=== PATIENT | female | born 1960 | race Caucasian/White ===

== ENCOUNTER 2018-11-13 08:20 | Inpatient (IN) | payer OTHER ==
[~2018-11-13] VITALS: Ht 165.1 cm; Wt 97.8 kg
[2018-11-13] MEDS ORDERED: Gemfibrozil600 MG PO (09:25)
[2018-11-13] MEDS ORDERED: THYR60 PO (09:25)
[2018-11-13] MEDS ORDERED: OXYC5 PO (09:25)
[2018-11-13] MEDS ORDERED: BACL20 PO (09:25)
[2018-11-13] MEDS ORDERED: ATEN25 PO (09:25)
[2018-11-13] MEDS ORDERED: IBUP800 PO (09:26)
[2018-11-13 09:43] LABS: BASOPHILS ABSOLUTE AUTO 0.04 K/mm3 (0.00-0.23); BASOPHILS PERCENT AUTO 0 % (0-2); EOSINOPHILS ABSOLUTE AUTO 0.02 K/mm3 (0.00-0.68); EOSINOPHILS PERCENT AUTO 0 % (0-6); Hematocrit 41.8 % (33.0-51.0); Hemoglobin 13.3 g/dL (11.5-16.0); IMMATURE GRAN ABSOLUTE AUTO 0.03 K/mm3 (0.00-0.10); IMMATURE GRAN PERCENT AUTO 0 % (0-1); LYMPHOCYTES ABSOLUTE AUTO 0.68 K/mm3 (0.84-5.20); LYMPHOCYTES PERCENT AUTO 6 % (21-46); MONOCYTES ABSOLUTE AUTO 0.67 K/mm3 (0.16-1.47); MONOCYTES PERCENT AUTO 5 % (4-13); Mean Corpuscular HGB Conc 31.8 g/dL (31.5-36.5); Mean Corpuscular Volume 94 fL (80-100); Mean Platelet Volume 9.4 fL (9.1-12.4); NEUTROPHILS ABSOLUTE AUTO 11.01 K/mm3 (1.96-9.15); NEUTROPHILS PERCENT AUTO 88 % (41-73); Platelet Count 529 K/mm3 (150-400); RDW Coefficient Variation 13.4 % (11.7-14.2); RDW Standard Deviation 46.2 fL (35.1-46.3); Red Blood Cell Count 4.43 M/mm3 (3.80-5.20); White Blood Cell Count 12.45 K/mm3 (4.00-11.30)
[2018-11-13 10:06] LABS: Alanine Aminotransfer (ALT/SGP 17 U/L (12-78); Albumin/Globulin Ratio 0.9 (0.8-1.8); Alk Phos 86 U/L (50-136); Anion Gap 7 mmol/L (6-16); Aspartate Aminotrans (AST/SGOT 16 U/L (12-37); Bilirubin, Total 0.4 mg/dL (0.1-1.0); Blood Urea Nitrogen 19 mg/dL (8-24); Bun/Creatinine Ratio 20.2 (12.0-20.0); CO2, Blood 26 mmol/L (21-32); Chloride, Blood 104 mmol/L (98-108); Creatinine, Blood 0.94 mg/dL (0.40-1.00); Globulin, Blood 4.7 g/dL (2.2-4.0); Glomerular Filtration Rate >60 (60-); Glucose, Blood 146 mg/dL (70-99); Potassium, Blood 4.7 mmol/L (3.5-5.5); Sodium, Blood 137 mmol/L (136-145); Total Protein, Blood 8.7 g/dL (6.4-8.2); Troponin I <0.015 ng/mL (0.000-0.040)
[2018-11-13 11:29] LABS: International Normalized Ratio 0.97; Prothrombin Time Results 10.3 Sec (9.7-11.5)
[2018-11-13] MEDS ORDERED: Hydroxychloroq200 MG PO (11:54)
[2018-11-13] MEDS ORDERED: Ventolin/Prove6.7 GM PO (11:55)
[2018-11-13 15:00] LABS: PCO2 Arterial 42.8 mmHg (35-45); pH Blood Arterial 7.34 (7.35-7.45)
--- NOTE | 2018-11-13 17:09 | NUR ---
PT TO ROOM FROM ER AT 1535. REPORT FROM JAIME RICO. PT ADMITTED c PERFORATED GASTRIC ULCER. C/O EPIGASTRIC PAIN X 10 DAYS. INCREASED PAIN LAST NOC c NAUSEA. LAST BM YESTERDAY, LAST MEAL YESTERDAY AT 1900. PT A&OX 3. ANSWERS QUESTIONS APPROPRIATELY. STAND BY ASSIST TO BED. STATES PAIN 6/10. ABD ROUND, TENDER IN UPPER QUADRENTS, BT X 4. PLACED ON O2 IN ER POST NARCOTIC ADMINSTRATION. LUNGS CLEAR, SHALLOW RESP. PT C/O INCREASED PAIN c DEEP INSPIRATION. NSR ON MONITOR. VSBen BEDOYA. OR NURSE TO ROOM FOR PROCEDURE TODAY. CALL LIGHT IN REACH. UPDATED ON PLAN OF CARE. WILL CONTINUE TO MONITOR.
--- NOTE | 2018-11-13 18:33 | NUR ---
DR CORNEJO AT BEDSIDE DISCUSSING CARE PLAN c PT AND DAUGHTER. PLAN TO TAKE PT TO OR. REPORT TO ONCOMING NURSE.
--- NOTE | 2018-11-13 23:39 | NUR ---
ASSUMED CARE PT ARRIVESE TO ICU VIA STRETCHER FROM OR AT 2339. PT FOLLOWS COMMANDS, EQUAL INTEGRITY ASSESSOR, WIGGLES TOES, ETC... BUT HAS MUFFLED SPEECH. APPEARS TO BE IN PAIN AND ANXIOUS, REACHING FOR NG TUBE AND NON-REBREATHER MASK - DESPITE BEING TOLD NOT TO. PT NOT TOLERATING NON-REBREATHER SAT'ING MID - HIGH 80'S - SWITCHED TO 4L NC BECAUSE WE THOUGHT IT HAD SOMETHING TO DO WITH FEELING ANXIOUS FROM THE FACE MASK. PT TOLERATED THAT BETTER TILL ABOUT 2240, IN WHICH SHE DE-SAT'ED BACK TO MID TO HIGH 80'S. SHE IS NOW SAT'ING 91 ON 6L VIA OXYMIZER. WOUND VAC, AND BRYAN DRAIN SITES ARE CDI AND WNL. THE BRYAN DRAIN IS ABOUT 2/3 FULL OF SANGUINOUS DRAINAGE. PT HAS STRONG PULSES IN ALL EXTREMETIES. BP STABLE, HR IS TACHY BUT SINUS AND TRENDING DOWNWARD. PT HAS A NG TUBE THAT IS HOOKED UP TO LIS, NO APPARENT DRAINAGE ASIDE AIR. WILKES CATHETER IS RAINING CLEAR, YELLOW URINE TO GRAVITY. BED IS LOW AND LOCKED. CALL LIGHT WITHIN REACH.
--- NOTE | 2018-11-13 23:40 | NUR ---
END OF POST-ANESTHESIA RECOVERY. PT IS MORE ALERT, UNABLE TO SPEAK FULL SENTENCES - BUT CAN STATE NEEDS WITH ONE WORD, AND FOLLOWS ALL COMMANDS. PT IS VENTILATING MORE ADEQUATELY, ABLE TO TAKE DEEPER BREATHS AND IS REQUIRING LESS OXYGEN.
[2018-11-14 03:17] LABS: BASOPHILS ABSOLUTE AUTO 0.01 K/mm3 (0.00-0.23); BASOPHILS PERCENT AUTO 0 % (0-2); EOSINOPHILS PERCENT AUTO 0 % (0-6); Hematocrit 34.7 % (33.0-51.0); IMMATURE GRAN ABSOLUTE AUTO 0.03 K/mm3 (0.00-0.10); IMMATURE GRAN PERCENT AUTO 0 % (0-1); LYMPHOCYTES ABSOLUTE AUTO 0.59 K/mm3 (0.84-5.20); LYMPHOCYTES PERCENT AUTO 5 % (21-46); MONOCYTES ABSOLUTE AUTO 0.44 K/mm3 (0.16-1.47); MONOCYTES PERCENT AUTO 4 % (4-13); Mean Corpuscular HGB 30.6 pg (26.0-34.0); Mean Corpuscular HGB Conc 31.7 g/dL (31.5-36.5); Mean Platelet Volume 8.9 fL (9.1-12.4); NEUTROPHILS ABSOLUTE AUTO 10.09 K/mm3 (1.96-9.15); NEUTROPHILS PERCENT AUTO 90 % (41-73); Platelet Count 391 K/mm3 (150-400); RDW Coefficient Variation 13.6 % (11.7-14.2); RDW Standard Deviation 48.7 fL (35.1-46.3); Red Blood Cell Count 3.59 M/mm3 (3.80-5.20); White Blood Cell Count 11.16 K/mm3 (4.00-11.30)
[2018-11-14 03:21] LABS: Mean Corpuscular Volume 97 fL (80-100)
[2018-11-14 03:34] LABS: Alanine Aminotransfer (ALT/SGP 590 U/L (12-78); Albumin, Blood 2.8 g/dL (3.4-5.0); Albumin/Globulin Ratio 0.7 (0.8-1.8); Alk Phos 67 U/L (50-136); Anion Gap 6 mmol/L (6-16); Aspartate Aminotrans (AST/SGOT 978 U/L (12-37); Bilirubin, Total 0.3 mg/dL (0.1-1.0); Blood Urea Nitrogen 14 mg/dL (8-24); Bun/Creatinine Ratio 21.1 (12.0-20.0); CO2, Blood 24 mmol/L (21-32); Calcium, Blood 7.7 mg/dL (8.5-10.1); Chloride, Blood 107 mmol/L (98-108); Creatinine, Blood 0.66 mg/dL (0.40-1.00); Glomerular Filtration Rate >60 (60-); Glucose, Blood 123 mg/dL (70-99); Magnesium, Blood 1.8 mg/dL (1.6-2.4); Phosphorus, Blood 3.1 mg/dL (2.5-4.9); Sodium, Blood 137 mmol/L (136-145); Total Protein, Blood 6.8 g/dL (6.4-8.2)
--- NOTE | 2018-11-14 06:22 | NUR ---
SHIFT SUMMARY PT IS CURRENTLY LYING IN BED, S/P EX LAP + ANTRECTOMY AND HAS BEEN INCREASINGLY MORE ALERT, AND VERBAL - SHE FOLLOWS COMMANDS, IS ORIENTED TO SELF, LOCATION, SITUATION AND YEAR; EQUAL SYSTEM SUPPORT ANALYST. SHE IS NOW ABLE TO VERBALIZE PAIN ON A NUMBER SCALE. LAWN MOWER PUMP IS INFUSING AT 10MCG/HR, WITH LAWN MOWER DOSES OF 10MCG WITH A LOCKOUT PERIOD OF 8MINS. LR IS ALSO INFUSING AT 125ML/HR. PT'S OTHER MAIN COMPLAINT IS HER DRY MOUTH/THROAT, SWABS HAVE BEEN GIVEN. BRYAN DRAIN IN PLACE, CONTAINING SANGUINOUS DRAINAGE. WOUND VAC IN PLACE. SITES ARE COVERED WITH GAUZE AND FOAM (RESPECTIVELY) AND ARE CDI, WNL. SCD'S ARE IN PLACE, WILKES PATENT AND HANGING TO GRAVITY WITH ADEQUATE URINE OUTPUT (1025ML/SHIFT - YELLOW/DARNELL, CLEAR). IV SITES ARE WNL. PT REQUIRED NONREBREATHER AT START OF SHIFT, SWITCHED OVER TO NC, AND FOR THE MAJORITY OF SHIFT HAS BEEN ON THE OXYMIZER STARTING AT 6LPM, AND IS CURRENTLY ON 3LPM, SAT'ING MID 90'S. BP STABLE ALL NIGHT, HR IS SINUS TACH, AND AFEBRILE. RESPIRATIONS ARE SHALLOW, BUT HAVE IMPROVED SHIFT PROGRESSED. BED IS LOW AND LOCKED. , AND DAUGHTER UPDATED AND SAW PT FOLLOWING SURGICAL PROCEDURE. WILL BE BACK IN THE MORNING. CALL LIGHT AND LAWN MOWER HANDLE WITHIN REACH.
--- NOTE | 2018-11-14 08:18 | NUR ---
ASSUMED CARE OF PT AT 0700. REPORT FROM COCO RICO. PT RESTING IN BED. INTERMITTANLY MOANS. STATES PAIN 5. EDUCATED PT ON FRANCHISE SALES MANAGER USAGE. FENTANYL FRANCHISE SALES MANAGER, CONTINUOUS RATE AT 10 MCG/HR, FRANCHISE SALES MANAGER DOSE 10 MCG. LR AND ZOSYN INFUSING. NGT IN PLACE, LOW INTERMITTANT SUCTION. BRYAN DRAIN TO ABD c SCANT SANGINOUS FLUID, WOUND VAC TO ABD, DRESSING CDI. ABD SOFT, BT HYPOACTIVE. LUNGS DIMINSHED IN BASES. PT c SHALLOW RESP D/T PAIN. OXYMIZER IN PLACE AT 3L. U/S COMPLETE THIS AM. CALL LIGHT IN REACH. WILL CONTINUE TO MONITOR.
--- NOTE | 2018-11-14 13:11 | NUR ---
REPORT TO ANDREA RICO ON SURGICAL FLOOR. PT RESTING WHEN UNDISTURBED, C/O PAIN c MOVEMENT. MAINTAINED NPO STATUS. NGT IN PLACE. WOUND VAC DRESSING CDI. BRYAN DRAIN IN PLACE. PT ON 3L VIA OXYMIZER. VSS. NO ACUTE CHANGES THIS SHIFT. ALL BELONGINGS PREVIOUSLY HOME c SO. TRANSFERRED TO 209.
--- NOTE | 2018-11-14 13:16 | NUR ---
CALL PLACED TO PT'S PAIN MANAGEMENT CLINIC PER SO. PT HAS APPT ON 11/18. WILL KEEP THIS APPT AT THIS TIME. REPORTED TO NAYANA NURSE TO CALL AND RESCHEDULE APPT STILL IN HOSPITAL SUNDAY.
--- NOTE | 2018-11-14 18:12 | NUR ---
TRANSFER: REPORT RECIEVED FROM RNJOVANA. PT TO UNIT AT ABOUT 1330. UPON ASSESSMENT PT IS IN NO VISABLE DISTRESS. A/O, SPO2 93% ON 3L VIA NC. NGT TO INTERMITTANT SUCTION. SURGICAL SITES WNL, SMALL AMOUNT PINK DRAINAGE IN BRYAN. PT PAINFUL WITH MOVEMENT, BOLUS DEMAND EQUIPMENT REPAIRER BUTTON ENCOURAGED. PT REPORTED COMFORTABLE AFTER REPOSITIONED. AT FIRST PT REFUSED SCD'S, PT EDUCATED AND STAFF CONVINCED PT OF NEED. WILL ENCOURAGE USE. NO ACUTE CONCERNS A THIS TIME. WILL CTM
--- NOTE | 2018-11-14 18:17 | NUR ---
SUMMARY: NO CHANGE SINCE TRANSFER. PT REPOSTIONED PRN Q2. NO OUTPUT FROM NGT. PT DENIES NAUSEA. REPORTS PAIN IS TOLERABLE WITH FENTANYL LEARNING SUPPORT RESOURCE ROOM TEACHER. DISCUSSED PLAN OF CARE WITH PT DAUGHTER, WHO IS CURRENTLY AT PT BEDSIDE. WILL PASS REPORT TO ZAIRA RICO.
--- NOTE | 2018-11-14 19:47 | NUR ---
NGT DISCONTINUED AT 0. PT TOLERATED WELL
[2018-11-15 04:20] LABS: Hematocrit 32.6 % (33.0-51.0); Hemoglobin 10.2 g/dL (11.5-16.0); Mean Corpuscular HGB 30.2 pg (26.0-34.0); Mean Corpuscular HGB Conc 31.3 g/dL (31.5-36.5); Mean Corpuscular Volume 96 fL (80-100); Platelet Count 398 K/mm3 (150-400); RDW Coefficient Variation 13.4 % (11.7-14.2); RDW Standard Deviation 47.8 fL (35.1-46.3); Red Blood Cell Count 3.38 M/mm3 (3.80-5.20); White Blood Cell Count 10.57 K/mm3 (4.00-11.30)
[2018-11-15 04:44] LABS: Anion Gap 7 mmol/L (6-16); Blood Urea Nitrogen 10 mg/dL (8-24); Bun/Creatinine Ratio 18.2 (12.0-20.0); CO2, Blood 26 mmol/L (21-32); Calcium, Blood 8.1 mg/dL (8.5-10.1); Chloride, Blood 104 mmol/L (98-108); Creatinine, Blood 0.55 mg/dL (0.40-1.00); Glomerular Filtration Rate >60 (60-); Glucose, Blood 90 mg/dL (70-99); Potassium, Blood 3.6 mmol/L (3.5-5.5); Sodium, Blood 137 mmol/L (136-145)
--- NOTE | 2018-11-15 07:41 | NUR ---
assisted to bathroom lg bm pt had scant amt of urine post removal franco cath pt passed alot of flatus
--- NOTE | 2018-11-15 07:51 | NUR ---
SUMMARY PT WILKES OUT. VOIDED SCANT AMNT X 1.OOB FOR BRP WITH ASSIST OF A LAILA RICO. PT REPORTS SHSE FEELS BETTER THIS AM. BREATHING DEEPER.
--- NOTE | 2018-11-15 11:00 | NUR ---
pt oob amb in hallway with s/o using fww pt voided
--- NOTE | 2018-11-15 11:38 | NUR ---
pt sitting up in chair watching tv using a pillow for tcdb
--- NOTE | 2018-11-15 14:20 | NUR ---
called [facility] in [place] made appt for the 23 d at 2 :15
--- NOTE | 2018-11-15 14:45 | NUR ---
PT ASSISTED BACK INTO BED BRYAN EMPTIED
--- NOTE | 2018-11-15 18:37 | NUR ---
PT AMB [place] [address] WITH FAMILY DR CORNEJO BY TO SEE PT PLAN TO CONT ON LIQUIDS POSSIBLE DISCHARGE SUNDAY OR SUNDAY OK TO D/C TELE
--- NOTE | 2018-11-16 07:46 | NUR ---
SUMMARY NO ACUTE CHANGES NOTED THROUGH THE NIGHT. PT CONTINUES TO TOLERATE CLEAR FLUIDS WITH NO NAUSEA. PASSING FLATUES. REPORTS BM YESTERDAY 11/15/18. DRSG REMAINS C/D/I, SUCTION IN PLACE. PAIN MANAGED VIA FENT POLICY INTERN. VOIDING WNL. CALL LIGHT IN REACH. REPORT GIVEN TO DAY RN
--- NOTE | 2018-11-16 17:17 | NUR ---
SHIFT SUMMARY PT A&OX4, VSS, POD3 EXP LAP, RAHEEL VAC, BRYAN DRAIN SS. PAIN MANAGED WITH 10 MG PERCOCET, TORADOL. DEMETRIUS PO, DENIES N&V. AMB W/FWW & SBA TO BRP AND IN ROOM. WILL REPORT TO ONCDILLON MENESES RN.
--- NOTE | 2018-11-16 17:40 | NUR ---
Pt visit this afternoon. Pt is sitting in chair upon arrival. Family at bedside. Pt reports her pain is managed with current regimen. She denies anxiety and dyspnea. Listened as she discussed feeling better and has been walking without difficulty. Engaged in discussion regarding AD/POLST. Pt reports having an AD completed from [place] but not for [place]. Educated Pt on each section to complete and life sustaining measures with V/U made by Pt. Educated on the importance of having a healthcare sales representative gas service. Pt reports no other concerns at this time. Spoke with bedside nurse Erica and discussed case. No concerns reported at this time. Palliative Care will remain available.
[2018-11-17 04:17] LABS: Hematocrit 27.7 % (33.0-51.0); Hemoglobin 8.9 g/dL (11.5-16.0); Mean Corpuscular HGB 30.5 pg (26.0-34.0); Mean Corpuscular HGB Conc 32.1 g/dL (31.5-36.5); Mean Corpuscular Volume 95 fL (80-100); Mean Platelet Volume 8.9 fL (9.1-12.4); Platelet Count 368 K/mm3 (150-400); RDW Coefficient Variation 13.6 % (11.7-14.2); RDW Standard Deviation 47.4 fL (35.1-46.3); Red Blood Cell Count 2.92 M/mm3 (3.80-5.20); White Blood Cell Count 4.86 K/mm3 (4.00-11.30)
[2018-11-17 04:43] LABS: Alanine Aminotransfer (ALT/SGP 719 U/L (12-78); Albumin, Blood 2.3 g/dL (3.4-5.0); Albumin/Globulin Ratio 0.6 (0.8-1.8); Alk Phos 68 U/L (50-136); Anion Gap 6 mmol/L (6-16); Aspartate Aminotrans (AST/SGOT 278 U/L (12-37); Bilirubin, Total 0.2 mg/dL (0.1-1.0); Blood Urea Nitrogen 6 mg/dL (8-24); Bun/Creatinine Ratio 9.9 (12.0-20.0); CO2, Blood 31 mmol/L (21-32); Calcium, Blood 7.8 mg/dL (8.5-10.1); Chloride, Blood 102 mmol/L (98-108); Creatinine, Blood 0.61 mg/dL (0.40-1.00); Globulin, Blood 3.9 g/dL (2.2-4.0); Glomerular Filtration Rate >60 (60-); Glucose, Blood 86 mg/dL (70-99); Potassium, Blood 2.9 mmol/L (3.5-5.5); Sodium, Blood 139 mmol/L (136-145); Total Protein, Blood 6.2 g/dL (6.4-8.2)
--- NOTE | 2018-11-17 06:11 | NUR ---
SUMMARY NO ACUTE CHANGES THROUGH THE NIGHT. DRSG REMAINS INTACT. APPROX 180 ML'S NOTED IN BRYAN. PT IS TOLERATING PO INTAKE. PASSING FLATUS. VOIDING WNL. PAIN MANAGED WITH PO PAIN MEDS. CALL LIGHT IN REACH
[2018-11-17] MEDS ORDERED: HYDR1TAB94 PO (11:43)
[2018-11-17] MEDS ORDERED: AMOCLA875 PO (11:44)
--- NOTE | 2018-11-17 14:51 | NUR ---
SHIFT SUMMARY PT A&OX4, VSS, LEFT FLOOR VIA WC WITH DAUGHTER, TO GO HOME WITH ALL PERSONAL POSSESSIONS INCLUDING DISCHARGE PACKET, 1 ABX SCRIPT AND 1 NORCO SCRIPT. DC INSTRUCTIONS PROVIDED. PT AND DAUGHTER VERBALIZED UNDERSTANDING OF THOSE INSTRUCTIONS. IV DC'D.
== END 2018-11-17 12:45 | disposition home or self-care (01) | DRG 853 ==
LOC: ER 08:20 → ICUE 11:55 → SURS 11:55 → PCU 11:55 → SURS 15:30 → ICUE 15:34 → SURS 11-14 13:32
PROVIDERS: Emergency Medicine; Internal Medicine; Nurse Practitioner Acute Care; Physician Assistant; Surgery; ADMIT Internal Medicine
PROC: 0DB60Z3 Excision of Stomach, Open Approach, Vertical (ICD-10-PCS; principal; 2018-11-13 16:15)
PROC: 0D160ZA Bypass Stomach to Jejunum, Open Approach (ICD-10-PCS; 2018-11-13 16:15)
DX: A41.9 Sepsis, unspecified organism (principal); K25.5 Chronic or unspecified gastric ulcer with perforation; K21.9 Gastro-esophageal reflux disease without esophagitis; Z87.891 Personal history of nicotine dependence; G89.4 Chronic pain syndrome; M06.9 Rheumatoid arthritis, unspecified; E78.00 Pure hypercholesterolemia, unspecified; E03.9 Hypothyroidism, unspecified; Z90.5 Acquired absence of kidney; I10 Essential (primary) hypertension
CPT/HCPCS: 36415; 36600; 71045; 74176; 80048; 80053; 82803; 83605; 83690; 83735; 83880; 84100; 84484; 85025; 85027; 85379; 85610; 87040; 88307; 88342; 93005; 93010; 93970; 94762; 94770; 96361; 96365; 96375; 99285-25; C9113; J0330; J1170; J1650; J1885; J2060; J2405; J2543; J2704; J3010; J3480; J7030; J7120

== ENCOUNTER → 2022-04-06 | Outpatient (CLI) | payer OTHER ==
[~2022-04-06] MED LIST: AMOCLA875 PO; ATEN25 PO; BACL20 PO; Gemfibrozil600 MG PO; HYDR1TAB94 PO; Hydroxychloroq200 MG PO; IBUP800 PO; OXYC5 PO; THYR60 PO; Ventolin/Prove6.7 GM PO
== END | disposition home or self-care (01) ==
LOC: LAB 11:05 → LAB SHORT 11:05
DX: E53.8 Deficiency of other specified B group vitamins (principal)
CPT/HCPCS: 82607; 82746